=== PATIENT | female | born 1980 ===

== ENCOUNTER → 2020-07-18 | Outpatient (CLI) | LOC: M LABSMTC 13:43 | PROVIDERS: ATTEND Pediatrics | DX: Z20.822 Contact with and (suspected) exposure to COVID-19 (principal) ==

== ENCOUNTER → 2020-09-24 | Outpatient (CLI) | payer SELFPAY | LOC: M LABSMTC 09:39 | PROVIDERS: ATTEND Pediatrics | DX: Z20.828 Contact with and (suspected) exposure to other viral communicable diseases (principal) ==

== ENCOUNTER → 2020-10-08 | Outpatient (CLI) | payer SELFPAY | LOC: M LABSMTC 09:36 | PROVIDERS: ATTEND Pediatrics | DX: Z20.828 Contact with and (suspected) exposure to other viral communicable diseases (principal) ==

== ENCOUNTER → 2020-10-16 | Outpatient (CLI) | payer SELFPAY | LOC: M LABSMTC 09:31 | PROVIDERS: ATTEND Pediatrics | DX: Z20.828 Contact with and (suspected) exposure to other viral communicable diseases (principal); Z11.59 Encounter for screening for other viral diseases ==

== ENCOUNTER → 2020-10-30 | Outpatient (CLI) | payer SELFPAY | LOC: M LABSMTC 09:46 | PROVIDERS: ATTEND Pediatrics | DX: Z11.52 Encounter for screening for COVID-19 (principal) ==

== ENCOUNTER → 2020-11-06 | Outpatient (CLI) | payer SELFPAY | LOC: M LABSMTC 13:58 | PROVIDERS: ATTEND Pediatrics | DX: Z11.52 Encounter for screening for COVID-19 (principal) ==

== ENCOUNTER → 2020-11-13 | Outpatient (CLI) | payer SELFPAY | LOC: M LABSMTC 09:37 | PROVIDERS: ATTEND Pediatrics | DX: Z11.52 Encounter for screening for COVID-19 (principal) ==

== ENCOUNTER → 2020-11-20 | Outpatient (CLI) | payer SELFPAY | LOC: M LABSMTC 13:22 | PROVIDERS: ATTEND Pediatrics | DX: Z20.822 Contact with and (suspected) exposure to COVID-19 (principal) ==

== ENCOUNTER → 2020-11-27 | Outpatient (CLI) | payer SELFPAY | LOC: M LABSMTC 13:30 | PROVIDERS: ATTEND Pediatrics | DX: Z20.822 Contact with and (suspected) exposure to COVID-19 (principal) ==

== ENCOUNTER 2021-04-09 11:19 | Inpatient (IN) | payer OTHER, SELFPAY ==
[2021-04-09] VITALS (13 sets, daily range): BP systolic 113–151; BP diastolic 53–90
[~2021-04-09] VITALS: Ht 170.2 cm; Wt 90.4 kg
[2021-04-09] MEDS ORDERED: LACTATED RINGER'S 1000 ML IV STA (11:22)
[2021-04-09] MEDS ORDERED: LIDOCAINE 1% MDV 20ML VIAL INFIL PRN (11:25)
[2021-04-09] MEDS ORDERED: METHYLERGONOVINE MALEATE 0.2 MG/ML VIAL (J2210) IM PRN (11:25)
[2021-04-09] MEDS ORDERED: OXYTOCIN DRIP 30 UNITS in IV 1 EA IV PRN (11:25)
[2021-04-09] MEDS ORDERED: TRANEXAMIC ACID INJection 1,000 MG in NS 100 ML IV PRN (11:25)
[2021-04-09] MEDS ORDERED: LR 1,000 ML IV SCH (11:25)
[2021-04-09] MEDS ORDERED: CARBOPROST TROMETHAMINE 250 MCG/ML AMP IM PRN (11:25)
[2021-04-09] MEDS ORDERED: STUACAP PO ×2 (11:48→16:08)
[2021-04-09] MEDS ORDERED: SYNT150T PO (11:51)
[2021-04-09] MEDS ORDERED: CLAR10CA3 PO ×2 (11:51→16:06)
[2021-04-09] MEDS ORDERED: ASPI1CHW3 PO (11:52)
[2021-04-09] MEDS ORDERED: FERR325T3 PO ×2 (11:52→16:03)
[2021-04-09] MEDS ORDERED: VIT1CAPS11 PO (11:53)
[2021-04-09] MEDS ORDERED: HOME MED LIST COMPLETE! XX SCH (11:55)
[2021-04-09] MEDS ORDERED: miSOPROStol 25MCG 1/4 TABLET PV ONE (12:50)
[2021-04-09 13:30] LABS: HEMATOCRIT 38.8 % (36.0-47.0); HEMOGLOBIN 13.1 g/dl (12.0-15.5); MEAN CORPUSCULAR HEMOGLOBIN 33.4 pg (27.0-33.0); MEAN CORPUSCULAR HGB CONC 33.8 g/dl (32.0-36.5); PLATELET COUNT, AUTOMATED 202 10^3/uL (150-450); RED BLOOD COUNT 3.92 10^6/uL (4.00-5.40); WHITE BLOOD COUNT 8.2 10^3/uL (4.0-10.0)
--- NOTE | 2021-04-09 13:37 | HPEPDOC ---
Obstetrical History & Physical General Date of Admission Apr 09, 2021 at 11:19 History of Present Illness 40 yo at 39w5d with FAVIAN of 11 APR 2021 presents to L&D for IOL for AMA. She is feeling well with no concerns at this time. She denies contractions, leaking of fluid, vaginal bleeding, and reports positive movement. She has supportive family at the bedside. Interval History: AMA Hypothroid Vegetarian Seasonal allergies Hx of Grave's Anemia Chief Complaint: Induction of labor (for AMA) Information Provided By: Patient Age: 40 : 2 Term: 0 Pre-term: 0 Abortions: 1 Livin Care Care: Good Care Dating Final EDC: Apr 11, 2021 Final EDC by: 1st trimester (US) LMP: Jun 27, 2020 1st Trimester Date: Aug 30, 2020 Weeks + Days: 8.0 Estimated Date of Confinement: Apr 11, 2021 EGA at Admission: 39.5 Antepartum Course Height (inches): 67 Pre- weight (lbs.): 163 Admission Weight (lbs.): 199 Change in Weight (lbs.): 36 Past Medical History Past Obstetrical History : Past Obstetrical History: Primg[employer] History: Spontaneous Past Medical History Medical History Hypothroid Vegetarian Seasonal allergies Hx of Grave's Anemia Surgical History: Dilatation and Curettage, [place] teeth, Other (thyroid ablation) Family History Significant Family History: Cancer (Colon Cancer) Social History Marital Status: Family situation: Spouse/partner home Psychosocial History: No pertinent psych hx * Smoker: non-smoker Alcohol: Denies Drugs: denies Abuse Violence Screening Have you been hit/kicked/slapp: No Have you been sexually assault: No Imunizations Tdap status: current Allergies Coded Allergies: No Known Drug Allergies (Verified Allergy, Unknown, 04/09/21) Medications Scheduled Aspirin (Aspirin) 81 Mg Tab.chew, 81 MG PO DAILY for pain Levothyroxine Sodium (Synthroid) 150 Mcg Tablet, 1 TAB PO DAILY Loratadine (Claritin) 10 Mg Capsule, 1 CAP PO DAILY for allergy symptoms Miscellaneous Medications Ferrous Sulfate (Ferrous Sulfate) 325 Mg Tablet.dr, 325 MG PO Pnv No.63/Iron,Carb/Folic/Dha (Ángel One Capsule) 1 Each Capsule, 1 CAP PO Vit D3/Vit K2/[place] Primrose Ext (Osteoblox Cf Capsule) 25 Mcg-20 Mcg-250 Mg Capsule, 2,000 EACH PO Physical Examination Physical Examination GENERAL: Alert and oriented times three. BREAST: . ABDOMEN: Gravid and non-tender to touch. FETUS: Is vertex (VTX) by sterile vaginal examination (SVE), fetus is vertex (VTX) by Jesse. HEART RATE: Regular rate and rhythm. LUNGS: Clear to auscultation (CTA). EXTREMITIES: No edema. No clonus. Deep tendon reflexes (DTRs) + 2. Cook balloon placed at 1308 with 80/80 inflated into the uterine and vaginal balloons without difficulty. Patient tolerated procedure well. Laboratory Data 24H LABS Laboratory Tests 2 04/09/21 11:30: Serology Scanned Report Hepatitis B Testing Pertinent Laboratoy Data Blood Type: O+ RBC Antibody Screen: Negative HIV: Negative Hepatitis B: Negative Rapid Plasma Reagin: Nonreactive Rubella: Immune Varicella: Immune Chlamydia/Gonorrhea: Negative Group B Streptococcus: Negative Cystic Fibrosis: Negative Glucose Tolerance Test: 75 Vaginal Examination Dilation: 1cm Effacement: 50% Station: -3 Cervical Consistency: Medium Cervical Position: Posterior Presentation: Cephalic presentation Position: Vertex (occiput) Assessment Heart Rate (FHR): 145 Variability: Moderate Accelerations: Present Decelerations: None Tocometer Contractions: Yes Frequency: irregular Multi-drug resistant Organism: No history of MDRO Assessment/Plan Assessment IUP at 39w5d Induction of labor for AMA Hypothroid Plan Admit and orient. Insurance Consultant and consent. Diet: Clear liquids. Group B Streptococcus (GBS) negative. Labs and intravenous (IV) per unit protocol. Counseled on Cytotec, Cook Balloon, Pitocin and induction of labor (IOL). Cook balloon due to be removed at 0108. Lactated Ringers (LR): Bolus 1000 mL, then at 125 mL/hr. Anticipate normal spontaneous delivery (). C-S as appropriate. Labor and Delivery Counseling We will deliver your baby through the vagina with possible assistance of forceps or vacuum device if needed for maternal or indications. Forceps and vacuum are devices that can assist with vaginal delivery when normal pushing efforts cannot achieve delivery on their own or when delivery is needed in an emergency for baby's well-being. Medications may be required to induce or augment (help) your labor in order to achieve a vaginal delivery. An episiotomy may be required to help your baby to delivery vaginally. You may also require repair of any lacerations or tears of your vagina or vulva that are caused by delivery. In some cases, emergencies can occur that require an emergency section delivery so quickly that there may not be enough time to stop and complete consent forms for section. Understand that if this occurs, your providers will discuss the need for a section with you before they proceed with surgery. section is the delivery of your baby through an incision in your abdomen. In some situations, section may be safer to mom and baby than continuing labor and is only performed when clinically indicated. Risks of vaginal delivery include but are not limited to: Bleeding, infection, injury to the vagina, pelvic structures, injury to baby, damage to the uterus, reactions to anesthesia, uterine rupture, risk of hysterectomy for life threatening bleeding, or . Medications used to induce or augment labor may increase your risk for infection, uterine tachysystole, uterine rupture, heart rate abnormalities, need for emergency delivery or possible hysterectomy, and hemorrhage. Additional risks for use of forceps and vacuum include: increased risk of perineal and vaginal lacerations, risk of urinary or bowel incontinence, increased risk of injury to baby with bruising, scratches, hematomas on the head, or intracranial bleeding. DON STINSON CNM Apr 09, 2021 13:37
[2021-04-09] MEDS ORDERED: PROMETHAZINE INJ 25 MG/ML VIAL (J2550) IV PRN (14:00)
[2021-04-09] MEDS ORDERED: BUTORPHANOL 2 MG/ML INJ (J0595) IV PRN (14:00)
[2021-04-09] MEDS ORDERED: ASPI81CH8 PO (16:02)
[2021-04-09] MEDS ORDERED: LEVO150C PO (16:06)
--- NOTE | 2021-04-09 16:39 | IPNPDOC ---
Obstetrical Progress Note Date of Service Apr 09, 2021 Subjective [place] of Care Yanely Reyna is a 40yo at 39+5, presenting for induction of labor for advanced maternal age. She is hypothyroid on synthroid of 150mcg daily, the dosing of which has not changed in . She was seen in her room in a rocking chair. She is feeling contraction pains. She does not desire pain control medications at this masha.e We discussed IV meds and the epidural in detail, as well as expected labor course. Her induction was started with 25mcg cytotec and a cook cathter with 80/80. at 1300. Objective Vital Signs Date Time Temp Pulse Resp B/P (MAP) Pulse Ox O2 Delivery O2 Flow Rate FiO2 04/09/21 16:09 97.0 75 18 130/80 (97) Room Air Assessment Heart Rate (FHR): 150 Variability: Moderate Accelerations: Positive Decelerations: Late, Intermittent Heart Rate Tracing: Category II Tocometer Frequency: regular, every 2-5 min. Assessment and Plan Status: Reassuring Group B Streptococcus: Negative Anticipate: Vaginal Delivery Additional Comments The tracing has spans of minimal variability and then will have moderate variability with accelerations. I saw her earlier today in clinic and did a biophysical profile which was 8/8. She is hungry and as this is very early labor a one time regular diet is acceptable. At this time, routine intrapartum care if not expelled remove cook 80/80 at 0100 start pitocin once tracing allows anticipate vaginal delivery CHELLE MAHMOOD. Apr 09, 2021 16:39
[2021-04-09] MEDS ORDERED: OXYTOCIN 30 UNITS IN 0.9% NaCl 500ML IV BAG (J2590) As Ordered ONE (17:59)
[2021-04-09] MEDS ORDERED: OXYTOCIN DRIP 30 UNITS in IV 1 EA IV SCH (19:25)
[2021-04-09] MEDS ORDERED: FENTANYL 2MCG/ML ROPIVACAINE 0.2% IN 0.9% NACL 100ML IVBAG As Ordered ONE (22:59)
[2021-04-10] VITALS (8 sets, daily range): BP systolic 110–133; BP diastolic 56–73
[2021-04-10] MEDS ORDERED: OXYTOCIN 30 UNITS IN 0.9% NaCl 500ML IV BAG (J2590) As Ordered ONE (00:39)
[2021-04-10] MEDS ORDERED: MEASLES,MUMPS,RUBELLA VACCINE INJ (MMR-II) (90707) SC SCH (00:45)
[2021-04-10] MEDS ORDERED: DOCUSATE SODIUM 100MG CAPSULE PO PRN (00:45)
[2021-04-10] MEDS ORDERED: ONDANSETRON 4MG/2ML VIAL IV PRN (00:45)
[2021-04-10] MEDS ORDERED: OXYTOCIN DRIP 30 UNITS in IV 1 EA IV SCH (00:45)
[2021-04-10] MEDS ORDERED: METHYLERGONOVINE MALEATE 0.2 MG TAB PO PRN (00:45)
[2021-04-10] MEDS ORDERED: RHOGAM 300 MCG (1500 IU) INJ (J2790) IM SCH (00:45)
--- NOTE | 2021-04-10 00:45 | DNPDOC ---
[facility] Delivery Note Delivery Note DATE OF DELIVERY: [id number] PREDELIVERY DIAGNOSIS: 39+5 weeks' gestation and induction of labor for advanced maternal age. POST DELIVERY DIAGNOSIS: Delivered. PROCEDURE: spontaneous vaginal delivery BIOMATHEMATICIAN: Chelle Powell DO ANESTHESIA: none ESTIMATED BLOOD LOSS: 300 mL. FINDINGS: 6 pound 1 ounce 2740g infant, Score 9/9, loose nuchal reduced manually DELIVERY SUMMARY: Called to patient room as she was complete, complete, zero station and had the urge to bear down. The heart rate tracing was in the normal range with moderate variability with early and variable decelerations. After several pushes the head was visible at the introitus so I had the bed broken down and preparations made for delivery. Over the next two contractions the head delivered, restituted left occiput anterior and the anterior shoulder delivered easily followed by the posterior shoulder and corpus. There was a loose nuchal cord reduced manually. I placed the on the maternal abdomen for drying and stimulation. Good cry was noted. The father of the baby cut the cord. Cord blood was obtained for O+ maternal blood type. The placenta was delivered intact. Inspection of the perineum revealed a second degree midline laceration. 20mL of 1% epinephrine was injected locally as anesthetic. 3-0 vicryl was used to repair in a normal fashion. Hemostasis was noted. Mother and baby left in good condition. CHELLE POWELL DO Apr 10, 2021 00:44
[2021-04-10] MEDS: DIBUCAINE 1% OINTMENT 30GM TOP PRN ×2 (02:44→17:33)
[2021-04-10] MEDS: IBUPROFEN 800 MG TAB PO SCH ×3 (02:45→18:41)
[2021-04-10] MEDS: ACETAMINOPHEN 500 MG TAB PO SCH ×3 (05:51→18:41)
[2021-04-10] MEDS: LEVOTHYROXINE 150MCG TABLET (0.15MG) PO SCH (05:51)
--- NOTE | 2021-04-10 07:46 | IPNPDOC ---
Progress Note Date of Service: Apr 10, 2021 Progress Note SUBJECT: Yanely Reyna is a 40-year-old 2 now Para 1011 status post uncomplicated spontaneous vaginal delivery at 39+5 weeks' at approximately 2352 hours on of a female 6 pounds 1 ounces (2740 grams) with post vaginal laceration and repair, doing well day # 1. She has been ambulating, voiding spontaneously without issue and tolerating regular diet. Breast feeding without issue. Reports lochia is like a normal period. Patient is ambulating well. Reports some cramping with . Denies any pain. Voiding and stooling without difficulty. OBJECTIVE: VITAL SIGNS: Within normal limits, afebrile. Alert and oriented times three. Breath sounds clear to auscultation. Heart rate: Regular rate and rhythm, no murmurs, rubs or gallops. Abdomen: Fundus firm at U-2. Soft, NTTP. negative calf tenderness bilaterally [Minimal] lochia. ASSESSMENT: as above doing well on day 1. Vitals within normal limits, afebrile, hemodynamically stable with no evidence of infection. PLAN: 1. Discharge to home tomorrow 2. Tylenol and Motrin for pain. 3. Encourage breast feeding and ambulation. 4. undecided for contraception 5. Routine PP visit in 6 weeks in clinic. 6. Discussed return precautions at length. VS, I&O, 24H, Fishbone Vital Signs/I&O Vital Signs Date Time Temp Pulse Resp B/P (MAP) Pulse Ox O2 Delivery O2 Flow Rate FiO2 04/10/21 06:00 98.0 65 18 126/56 (79) 04/10/21 02:30 99 Room Air I&O- Last 24 Hours up to 6 AM 04/10/21 06:00 Intake Total 5716 ml Output Total 1650 ml Balance 4066 ml Laboratory Data 24H LABS Laboratory Tests 2 04/09/21 11:22: Syphilis Serology NONREACTIVE 04/09/21 11:30: Serology Scanned Report Hepatitis B Testing 04/09/21 13:13: Nucleated Red Blood Cells % (auto) 0.0 CBC/BMP Laboratory Tests 04/09/21 13:13 CHELLE MAHMOOD DO Apr 10, 2021 07:46
[2021-04-10] MEDS ORDERED: INFLUENZA QUADRIVALENT PF VACCINE 0.5ML SYRINGE IM ONE (09:00)
[2021-04-10] MEDS: PRENATAL VITAMINS CHEWABLE TABLET PO SCH (10:29)
[2021-04-11] MEDS: ACETAMINOPHEN 500 MG TAB PO SCH ×2 (00:03→06:39)
[2021-04-11] MEDS: IBUPROFEN 800 MG TAB PO SCH (03:19)
[2021-04-11] MEDS: LEVOTHYROXINE 150MCG TABLET (0.15MG) PO SCH (05:48)
[2021-04-11 06:00] VITALS: BP 119/73
--- NOTE | 2021-04-11 07:10 | IPNPDOC ---
Progress Note Date of Service: Apr 11, 2021 Progress Note Ms. Reyna is a 40 yo day 2 after an uncomplicated vaginal delivery after induction of labor for advanced maternal age; 6 pound 1 ounce 2740g infant, Score 9/9, loose nuchal reduced manually. She has been ambulating, voiding spontaneously without issue and tolerating regular diet. Breast feeding without issue. Reports lochia is less than a normal period. Patient is ambulating well. Reports some cramping with . Denies any pain. Voiding and passing flatus without difficulty. Interval History: AMA Hypothroid Vegetarian Seasonal allergies Hx of Grave's Anemia OBJECTIVE: VITAL SIGNS: Within normal limits, afebrile. Alert and oriented times three. no increased wob Heart rate: non-tachy Abdomen: Fundus firm at U-2. Soft, NTTP. [Minimal] lochia. per patient ASSESSMENT: Ms. Reyna is a 40 yo day 2 after an uncomplicated vaginal delivery after induction of labor for advanced maternal age; 6 pound 1 ounce 2740g , Score 9/9, loose nuchal reduced manually. She has been ambulating, voiding spontaneously without issue and tolerating regular diet. Vitals within normal limits, afebrile, hemodynamically stable with no evidence of infection. PLAN: 1. Discharge to home today. 2. Tylenol and Motrin for pain. 3. Encourage breast feeding and ambulation. 4. Plans on interval IUD for contraception. 5. Routine PP visit in 6 weeks in clinic. 6. Discussed return precautions at length and activity limitations (pelvic rest) 7. Return to pre- synthroid dose with plan for repeat TSH in 6 weeks VS, I&O, 24H, Fishbone Vital Signs/I&O Vital Signs Date Time Temp Pulse Resp B/P (MAP) Pulse Ox O2 Delivery O2 Flow Rate FiO2 04/11/21 06:00 98.7 66 18 119/73 (88) 100 Room Air GARY JOHNS DO Apr 11, 2021 07:10
--- NOTE | 2021-04-11 07:11 | OBDS ---
[facility] Obstetrical Discharge Sum. Obstetrical Discharge Summary Date: Apr 11, 2021 A/P, Post Course List any complications Ms. Reyna is a 40 yo day 2 after an uncomplicated vaginal delivery after induction of labor for advanced maternal age; 6 pound 1 ounce 2740g , Score 9/9, loose nuchal reduced manually. She has been ambulating, voiding spontaneously without issue and tolerating regular diet. Breast feeding without issue. Reports lochia is less than a normal period. Patient is ambulating well. Reports some cramping with . Denies any pain. Voiding and passing flatus without difficulty. She has been ambulating, voiding spontaneously without issue and tolerating regular diet. Vitals within normal limits, afebrile, hemodynamically stable with no evidence of infection. Interval History: AMA Hypothroid Vegetarian Seasonal allergies Hx of Grave's Anemia PLAN: 1. Discharge to home today. 2. Tylenol and Motrin for pain. 3. Encourage breast feeding and ambulation. 4. Plans on interval IUD for contraception. 5. Routine PP visit in 6 weeks in clinic. 6. Discussed return precautions at length and activity limitations (pelvic rest) 7. Return to pre- synthroid dose with plan for repeat TSH in 6 weeks Final diagnosis: vaginal delivery GARY JOHNS DO Apr 11, 2021 07:11
[2021-04-11 08:55] LABS: HEMATOCRIT 30.6 % (36.0-47.0); MEAN CORPUSCULAR HEMOGLOBIN 33.5 pg (27.0-33.0); MEAN CORPUSCULAR VOLUME 98.7 fl (80.0-96.0); PLATELET COUNT, AUTOMATED 166 10^3/uL (150-450); WHITE BLOOD COUNT 11.8 10^3/uL (4.0-10.0)
[2021-04-11] MEDS: PRENATAL VITAMINS CHEWABLE TABLET PO SCH (08:59)
[2021-04-11 09:03] LABS: HEMOGLOBIN 10.4 g/dl (12.0-15.5)
== END 2021-04-11 10:45 | disposition home or self-care (01) | DRG 807 ==
LOC: M LDI 11:19 → M OBS 04-10 02:25
PROVIDERS: ADMIT Registered Nurse Maternal Newborn; ATTEND Registered Nurse Maternal Newborn
PROC: 10E0XZZ Delivery of Products of Conception, External Approach (ICD-10-PCS; principal; 2021-04-09)
PROC: 0KQM0ZZ Repair Perineum Muscle, Open Approach (ICD-10-PCS; 2021-04-09)
PROC: 3E0P7VZ Introduction of Hormone into Female Reproductive, Via Natural or Artificial Opening (ICD-10-PCS; 2021-04-09)
DX: O99.284 Endocrine, nutritional and metabolic diseases complicating childbirth (principal); Z37.0 Single live birth; Z3A.39 39 weeks gestation of pregnancy; E03.9 Hypothyroidism, unspecified; Z79.899 Other long term (current) drug therapy; O09.523 Supervision of elderly multigravida, third trimester; O70.1 Second degree perineal laceration during delivery; O69.81X0 Labor and delivery complicated by cord around neck, without compression, not applicable or unspecified